=== PATIENT | male | born 1950 | race Caucasian/White ===

== ENCOUNTER 2016-10-04 10:04 | Inpatient (IN) | payer OTHER, MEDICARE ==
--- NOTE | 2016-10-04 11:37 | PDOC ---
History of Present Illness - General History Source: Patient Exam Limitations: No Limitations - History of Present Illness Initial Comments: CHIEF COMPLAINT: 65 y/o afebrile male with PMH enlarged prostate (multiple episodes of urinary retention), kidney stones c/o urinary retention and hematuria. HISTORY OF PRESENT ILLNESS: The patient states he is visiting from [place]. yesterday he started having some hematuria but was able to void. He has only been able to void in small dribbles this morning and states he has a lot of pressure in his bladder. He continues to have hematuria. He denies f/c, n/v/d , CP, SOB, back pain. He states this happens about 3 times per year where he has to come to the ER and get catheterized. He states they normally have to use a couvet catheter. Vital signs on arrival are notable for pulse of 50. REVIEW OF SYSTEMS: GENERAL/CONSTITUTIONAL: No fever/chills. No weakness. No weight change. HEAD, EYES, EARS, NOSE AND THROAT: No change in vision. No ear pain or discharge. No sore throat. CARDIOVASCULAR: No chest pain or shortness of breath. RESPIRATORY: No cough, wheezing, or hemoptysis. GASTROINTESTINAL: +lower abdominal pressure. No nausea, vomiting, diarrhea. GENITOURINARY: +hematuria and urinary retention. MUSCULOSKELETAL: No joint or muscle swelling or pain. No neck or back pain. SKIN: No rash or easy bruising. NEUROLOGIC: No headache, vertigo, loss of consciousness, or loss of sensation. PHYSICAL EXAM: GENERAL: The patient is awake, alert, and fully oriented, in moderate discomfort. HEAD: Normal with no signs of trauma. ENT: Pupils equal, round and reactive to light, extraocular movements intact, sclera anicteric, conjunctiva clear. Neck supple. LUNGS: Clear to auscultation bilaterally. Normal excursion. No respiratory distress or use of accessory muscles. CV: RRR, S1/S2, no MRG. Cap refill < 2 sec. ABDOMEN: Soft, non-distended, mild TTP of suprapubic region. No rebound, guarding or rigidity BACK: No CVA TTP b/l. EXTREMITIES: Normal range of motion, no edema. NEUROLOGICAL: Normal speech, normal gait. CN II-XII grossly intact. PSYCH: Normal mood, normal affect. SKIN: Warm, dry, normal turgor, no rashes or lesions noted. <Antonia Mike - Last Filed: 10/04/16 17:07> <Torsten Lopse - Last Filed: 10/07/16 08:11> - General Chief Complaint: Urinary Problem Stated Complaint: URINARY RETENTION/HEMATURIA Time Seen by Provider: 10/04/16 11:05 Past History - Psycho/Social/Smoking Cessation Hx Suicidal Ideation: No Smoking History: Former smoker Have you smoked in the past 12 months: No Information on smoking cessation initiated: No <Antonia Mike - Last Filed: 10/04/16 17:07> <Torsten Lopes - Last Filed: 10/07/16 08:11> - Past Medical History Allergies/Adverse Reactions: Allergies Allergy/AdvReac Type Severity Reaction Status Date / Time No Known Allergies Allergy Verified 10/04/16 10:17 Home Medications: Ambulatory Orders Omeprazole 40 mg PO DAILY 10/04/16 Tamsulosin HCl 0.4 mg PO DAILY 10/04/16 *Physical Exam - Vital Signs Last Vital Signs Temp Pulse Resp BP Pulse Ox 97.5 F L 50 L 19 165/81 98 10/04/16 10:17 10/04/16 10:17 10/04/16 10:17 10/04/16 10:17 10/04/16 10:17 <Antonia Mike - Last Filed: 10/04/16 17:07> - Vital Signs Last Vital Signs Temp Pulse Resp BP Pulse Ox 97.5 F L 43 L 18 138/43 98 10/07/16 06:00 10/07/16 06:00 10/07/16 06:00 10/07/16 06:00 10/06/16 22:00 <Torsten Lopes - Last Filed: 10/07/16 08:11> ED Treatment Course - LABORATORY CBC & Chemistry Diagram: 10/04/16 11:07 10/04/16 11:07 <Antonia Mike - Last Filed: 10/04/16 17:07> - LABORATORY CBC & Chemistry Diagram: 10/06/16 10:15 10/06/16 10:15 - ADDITIONAL ORDERS Additional order review: 10/04/16 11:07 Urine Culture - Final Urine - Urine - Catheterized NO GROWTH OBTAINED 10/04/16 11:07 RBC 5.38 MCV 88.8 MCHC 33.2 RDW 13.3 MPV 9.0 Neutrophils % 83.7 H Lymphocytes % 10.6 Monocytes % 5.0 Eosinophils % 0.4 Basophils % 0.3 - Medications Given in the ED: ED Medications Discontinued Medications Generic Name Dose Route Start Last Admin Trade Name Poncho PRN Reason Stop Dose Admin Sodium Chloride 1,000 mls @ 1,000 mls/hr 10/04/16 11:38 10/04/16 13:07 Normal Saline - IV 10/04/16 12:37 1,000 mls/hr ASDIR STA Administration Levofloxacin 100 mls @ 100 mls/hr 10/04/16 12:18 10/04/16 14:00 Levaquin 500 Mg Premixed Ivpb - IVPB 10/04/16 13:17 100 mls/hr ONCE ONE Administration <Torsten Lopes - Last Filed: 10/07/16 08:11> Medical Decision Making - Medical Decision Making A/P: 65 y/o afebrile male with urinary retention and hematuria. Plan is as follows: 1. UA/culture 2. Labs 3. IV fluids 4. Insert catheter 5. Bladder scan Bladder scan revealed 100cc residual. Vasquez continued to produce no urine output. RN performed beside irrigation and multiple large clots came out. Bedside ultrasound revealed large bladder clot (6cm x 4cm) and mild hydronephrosis on right side. Will send for Spiral CT Called Dr. Azevedo for consult Pt still refusing pain meds. Only very small amount of serous fluid output after the vasquez was inserted. Spoke with Dr. Sullivan of [facility], and he suggests admission for IV antibiotics and hourly bladder irrigation. Will admit to hospitalist as the patient is from [place], [place] and will consult with [facility]. <Antonia Mike - Last Filed: 10/04/16 17:07> - Medical Decision Making 10/07/16 08:11 The patient was seen and evaluated in conjunction with TRAM Mike under my direct supervision, ancillary studies were reviewed. I agree with the plan as outlined by [facility] . <Torsten Lopes - Last Filed: 10/07/16 08:11> *DC/Admit/Observation/Transfer - Discharge Dispostion Admit: Yes <Antonia Mike - Last Filed: 10/04/16 17:07> <Torsten Lopes - Last Filed: 10/07/16 08:11> Diagnosis at time of Disposition: Urinary retention, Hematuria UTI (urinary tract infection) Qualifiers: Urinary tract infection type: acute cystitis Hematuria presence: with hematuria Qualified Code(s): N30.01 - Acute cystitis with hematuria - Discharge Dispostion Condition at time of disposition: Stable - Patient Instructions
[2016-10-04] MEDS ORDERED: SODIUM CHLORIDE 1,000 ML IV STA (11:38)
[2016-10-04 12:11] LABS: BASOPHIL 0.3 % (0-2.0); EOSINOPHIL 0.4 % (0-4.5); MCH 29.5 pg (25.7-33.7); MCHC 33.2 g/dl (32.0-35.9); MEAN CELL VOLUME 88.8 fl (80-96); NEUTROPHILS 83.7 % (42.8-82.8); PLATELET COUNT 134 K/MM3 (134-434); RDW 13.3 % (11.9-15.9); URINE APPEARANCE CLEAR; URINE BILIRUBIN NEGATIVE (NEGATIVE); URINE COLOR DK. RED; URINE GLUCOSE (UA) NEGATIVE (NEGATIVE); URINE KETONE TRACE (NEGATIVE); URINE UROBILINOGEN 1.0 E.U/dl E.U./dl (0.2-1.0); WHITE BLOOD COUNT 6.8 K/mm3 (4.0-10.0)
[2016-10-04 12:15] LABS: URINE BLOOD 3+ (NEGATIVE); URINE LEUK ESTERASE TRACE (NEGATIVE); URINE NITRITE POSITIVE (NEGATIVE); URINE PROTEIN 2+ (NEGATIVE)
[2016-10-04 12:18] LABS: URINE RBC 7407 /hpf (0-3); URINE WBC 99 /hpf (3-5)
[2016-10-04 12:41] LABS: ANION GAP 8 (8-16); BILIRUBIN,TOTAL 0.9 mg/dL (0.2-1.0); CALCIUM 9.3 mg/dL (8.5-10.1); CO2 28 mmol/L (21-32); COCKROFT - GAULT 131.6; CREATININE 0.8 mg/dL (0.7-1.3); GLUCOSE,RANDOM 116 mg/dL (74-106); SGOT/AST 13 U/L (15-37); SGPT/ALT 23 U/L (12-78); TOT PROT 6.8 g/dl (6.4-8.2)
[2016-10-04 12:42] LABS: ALK PHOS 75 U/L (45-117)
[2016-10-04] MEDS: LEVOFLOXACIN 500 MG IVPB 100 ML IVPB ONE ×2 (13:50→14:00)
[2016-10-04] MEDS ORDERED: LEVOFLOXACIN 500 MG IVPB 100 ML IVPB ONE (13:59)
--- NOTE | 2016-10-04 18:29 | HP ---
CHIEF COMPLAINT: " Blood in urine" PCP: Dr. Arely christensen ([place]) Dr. Theodore Schaefer (Urologist in [place]) Dr. Elke Maharaj (GI in [place]) HISTORY OF PRESENT ILLNESS: Patient is a 65 year old male presented to the ED with the chief complaints of "blood in urine". As per the patient, he has a h/o painless hematuria on/off since 2 years, h/o kidney stones- invasive procedure done (name unknown) 3 months ago after which he stopped taking aspirin. But patient began taking aspirin 3 weeks ago, passed a large blood clot from the urine after 2 days and he then stopped taking aspirin. Since then he has noticed more of hematuria. Normally has nocturia 3-5times, urinary incontinence but denies hesitancy, urgency. This morning when he woke up to urinate, he noticed the flow of urine was decreased and passed only blood with minimal urine. He called his urologist in [place] at 6am in the morning who suggested him to go to the ED, hence he came here. Has a h/o BPH, underwent cystoscopy and TURP 3 months back. Patient also reports of having abdominal discomfort since 6 years with decreased appetite associated with nausea but no vomiting. He also lost around 25 pounds in the last 2 months. Endoscopy was done about 2 weeks ago which was benign. Complaints of chills but no fever, sweating, flank pain, chest pain, sob, cough , palpitations, headache, tingling or numbness. Sleep normal. ER course was notable for: (1) Afebrile, hemodynamically stable, No leukocytosis, UA: 2+ ptn; 3 + blood; Trace leukocyte esterase, urinary nitrate Positive. (2) CT abdomen/pelvis: Nephrolithiasis (3) IV Fluids, IV levofloxacin 500mg. Recent Travel: Lives in [place], came to [place] last week. PAST MEDICAL HISTORY: BPH (multiple episodes of urinary retention); Kidney stones (3 times: 2 lithotripsy's done with 1 invasive procedure (name unknown), gall stone pancreatitis for which he was hospitalized from [id number] and had whipples surgery as per patient in 2006 ?? pancreatic cancer, TURP done 3 months ago PAST SURGICAL HISTORY: As mentioned above Social History: Smoking: Former smoker, stopped 40 years ago Alcohol: Occasional Drugs: Denies Family History: Unknown Allergies No Known Allergies Allergy (Verified 10/04/16 10:17) HOME MEDICATIONS: Home Medications Medication Instructions Recorded Omeprazole 40 mg PO DAILY 10/04/16 Tamsulosin HCl 0.4 mg PO DAILY 10/04/16 REVIEW OF SYSTEMS CONSTITUTIONAL: Present: chills,generalized weakness Absent: fever, diaphoresis, malaise, loss of appetite, weight change HEENT: Absent: rhinorrhea, nasal congestion, throat pain, throat swelling, difficulty swallowing, mouth swelling, ear pain, eye pain, visual changes CARDIOVASCULAR: Absent: chest pain, syncope, palpitations, irregular heart rate, lightheadedness , peripheral edema RESPIRATORY: Absent: cough, shortness of breath, dyspnea with exertion, orthopnea, wheezing, stridor, hemoptysis GASTROINTESTINAL: Present: abdominal discomfort, nausea Absent: abdominal pain, abdominal distension, vomiting, diarrhea, constipation, melena, hematochezia GENITOURINARY: Present: hematuria Absent: dysuria, frequency, urgency, hesitancy, flank pain, genital pain MUSCULOSKELETAL: Absent: myalgia, arthralgia, joint swelling, back pain, neck pain SKIN: Absent: rash, itching, pallor HEMATOLOGIC/IMMUNOLOGIC: Absent: easy bleeding, easy bruising, lymphadenopathy, frequent infections ENDOCRINE: Absent: unexplained weight gain, unexplained weight loss, heat intolerance, cold intolerance NEUROLOGIC: Absent: headache, focal weakness or paresthesias, dizziness, unsteady gait, seizure, mental status changes, bladder or bowel incontinence PSYCHIATRIC: Absent: anxiety, depression, suicidal or homicidal ideation, hallucinations. PHYSICAL EXAMINATION Vital Signs - 24 hr 10/04/16 17:13 Temperature 98.3 F Pulse Rate [ 50 L Left Radial] Respiratory 16 Rate Blood Pressure 143/69 [Right Arm] O2 Sat by Pulse 100 Oximetry (%) GENERAL: Healthy looking male, lying comfortably in bed, Awake, alert, and fully oriented, in no acute distress. HEAD: Normal with no signs of trauma. EYES: EOM intact, no pallor or icterus. EARS, NOSE, THROAT: Ears normal. Moist mucous membranes. NECK: Supple. LUNGS: Breath sounds equal, clear to auscultation bilaterally. No wheezes, and no crackles. No accessory muscle use. HEART: Regular rate and rhythm, normal S1 and S2 without murmur. ABDOMEN: Multiple surgical scar sanders, Soft, slightly tender to palpation around umbilical area, not distended, normoactive bowel sounds, no guarding, no rebound, no masses. No hepatomegaly or splenomegaly. MUSCULOSKELETAL: Normal range of motion at all joints. No bony deformities or tenderness. No CVA tenderness. UPPER EXTREMITIES: 2+ pulses, warm, well-perfused. No cyanosis. No clubbing. No peripheral edema. LOWER EXTREMITIES: 2+ pulses, warm, well-perfused. No calf tenderness. No peripheral edema. NEUROLOGICAL: Cranial nerves II-XII intact. Normal speech. Gait not observed. PSYCHIATRIC: Cooperative. Good eye contact. Appropriate mood and affect. SKIN: Warm, dry, normal turgor, no rashes or lesions noted, normal capillary refill. 10/04/2016 CT abdomen: Postcholecystectomy surgical metallic clips are present. The stomach is only partially distended limiting evaluation of its wall. Both adrenal glands appear unremarkable. Left kidney is within normal limits in size with a few small nonobstructing lower pole stones measuring up to 6 mm. Impression: Status post cholecystectomy. Small nonobstructing left renal stones. 1.5 right renal pelvis stone with mild right renal hydronephrosis and right hydroureter and without evidence of a ureteral stone. Large mass like density within the urinary bladder measuring 6 cm displacing the Conway catheter tube and balloon towards the left. Iatrogenic intraluminal air is present. Further evaluation of the urinary bladder with cystoscopy is recommended. Multilevel degenerative disc disease in the lumbar spine mainly at L1-L2 level ASSESSMENT/PLAN: Patient is a 65 year old male with significant past medical history BPH ( multiple episodes of urinary retention); Kidney stones (3 times: 2 lithotripsy' s done with 1 invasive procedure (name unknown), gall stone pancreatitis for which he was hospitalized from [id number] and had whipples surgery in 2006 likely had pancreatic cancer, TURP done 3 months ago presented to the ED with the chief complaints of "blood in urine". # Recurrent hematuria likely due to UTI with Nephrolithiasis with mild right renal hydronephrosis and right hydroureter. H/o recurrent hematuria since 2 years, with kidney stones (3 times) in the past, came in with hematuria On arrival, he was Afebrile, hemodynamically stable, No leukocytosis, UA: 2+ ptn; 3 + blood; Trace leukocyte esterase, positive nitrates. CT abdomen/pelvis shows Nephrolithiasis with hydroureter, reported as above In the ED, patient received IV Fluids, IV levofloxacin 500mg. Admitted in Med-Surg Patient tolerating oral diet, hence no IV fluids are given at this time IV Ceftriaxone 1gm Daily Tamsulosin 0.4 mg PO Daily Urology consult appreciated Likely needs an invasive procedure, hence kept NPO from midnight and should start IV fluids after midnight. Conway catheter in place Bladder irrigation hourly ( as per urologist per ED documentation) and urology follow up tomorrow. I's and O's. # Painless hematuria likely due to ?? Bladder mass H/o weight loss, former smoker, hematuria CT abdomen showed Large mass like density within the urinary bladder measuring 6 cm displacing the Conway catheter tube and balloon towards the left. R/O Bladder cancer Needs biopsy # BPH Likely cause of urinary retention and UTI Enlarged Prostate size 5.6x5.3cm Flomax 0.4 mg continued # Abdominal discomfort likely because of urinary retention # Asymptomatic Bradycardia As per patient, he always remains in 50's but has never been worked up for bradycardia. TSH, would consider, cardiology evaluation # FEN Not on IV fluids Electrolytes WNL # Prophylaxis For DVT: Has hematuria so placed in SCD's. For GI: Not indicated # Code Status: Full Code # Dispo: Admitted in med-surg. Duration of stay unknown. Illness, Investigation and plan of care explained to the patient. He verbalized understanding. Case discussed with Dr. Abreu. Visit type - Emergency Visit Emergency Visit: Yes ED Registration Date: 10/04/16 Care time: The patient presented to the Emergency Department on the above date and was hospitalized for further evaluation of their emergent condition. - New Patient This patient is new to me today: Yes Date on this admission: 10/04/16 - Critical Care Critical Care patient: No
[2016-10-04] MEDS ORDERED: TAMSULOSIN HCL 0.4 MG CAP.ER.24H (FP) ONE (19:59)
--- NOTE | 2016-10-04 19:59 | PN ---
Teaching Attending Note Name of Resident: Donna Mondragon ATTENDING PHYSICIAN STATEMENT I saw and evaluated the patient. I reviewed the resident's note and discussed the case with the resident. I agree with the resident's findings and plan as documented. SUBJECTIVE: Patient is having gross hematuria s/p vasquez catheter with hourly irrigation. OBJECTIVE: Vital Signs Temperature 97.7 F 10/04/16 19:34 Pulse Rate 82 10/04/16 19:34 Respiratory Rate 17 10/04/16 19:34 Blood Pressure 146/85 10/04/16 19:34 O2 Sat by Pulse Oximetry (%) 96 10/04/16 19:34 CBCD WBC 6.8 K/mm3 (4.0-10.0) 10/04/16 11:07 RBC 5.38 M/mm3 (4.00-5.60) 10/04/16 11:07 Hgb 15.8 GM/dL (11.7-16.9) 10/04/16 11:07 Hct 47.7 % (35.4-49) 10/04/16 11:07 MCV 88.8 fl (80-96) 10/04/16 11:07 MCHC 33.2 g/dl (32.0-35.9) 10/04/16 11:07 RDW 13.3 % (11.9-15.9) 10/04/16 11:07 Plt Count 134 K/MM3 (134-434) 10/04/16 11:07 MPV 9.0 fl (7.5-11.1) 10/04/16 11:07 CMP Sodium 143 mmol/L (136-145) 10/04/16 11:07 Potassium 4.0 mmol/L (3.5-5.1) 10/04/16 11:07 Chloride 107 mmol/L (98-107) 10/04/16 11:07 Carbon Dioxide 28 mmol/L (21-32) 10/04/16 11:07 Anion Gap 8 (8-16) 10/04/16 11:07 BUN 23 mg/dL (7-18) H 10/04/16 11:07 Creatinine 0.8 mg/dL (0.7-1.3) 10/04/16 11:07 Creat Clearance w eGFR > 60 (>60) 10/04/16 11:07 Random Glucose 116 mg/dL (74-106) H 10/04/16 11:07 Calcium 9.3 mg/dL (8.5-10.1) 10/04/16 11:07 Total Bilirubin 0.9 mg/dL (0.2-1.0) 10/04/16 11:07 AST 13 U/L (15-37) L 10/04/16 11:07 ALT 23 U/L (12-78) 10/04/16 11:07 Alkaline Phosphatase 75 U/L (45-117) 10/04/16 11:07 Total Protein 6.8 g/dl (6.4-8.2) 10/04/16 11:07 Albumin 4.0 g/dl (3.4-5.0) 10/04/16 11:07 Current Medications Generic Name Dose Route Start Last Admin Trade Name Poncho PRN Reason Stop Dose Admin Ceftriaxone Sodium 1 gm 10/05/16 10:00 Rocephin 1gm Ivpb (Pre-Docked) IVPB DAILY [facility] Tamsulosin HCl 0.4 mg 10/04/16 19:45 Flomax - PO DAILY [facility] Home Medications Medication Instructions Recorded Omeprazole 40 mg PO DAILY 10/04/16 Tamsulosin HCl 0.4 mg PO DAILY 10/04/16 Urine Test Results Urine Color Dk. red 10/04/16 11:07 Urine Appearance Clear 10/04/16 11:07 Urine pH 7.0 (5.0-8.0) 10/04/16 11:07 Ur Specific [place] 1.020 (1.005-1.025) 10/04/16 11:07 Urine Protein 2+ (NEGATIVE) H 10/04/16 11:07 Urine Glucose (UA) Negative (NEGATIVE) 10/04/16 11:07 Urine Ketones Trace (NEGATIVE) H 10/04/16 11:07 Urine Blood 3+ (NEGATIVE) H 10/04/16 11:07 Urine Nitrite Positive (NEGATIVE) 10/04/16 11:07 Urine Bilirubin Negative (NEGATIVE) 10/04/16 11:07 Ur Leukocyte Esterase Trace (NEGATIVE) H 10/04/16 11:07 Urine RBC 7407 /hpf (0-3) 10/04/16 11:07 Urine WBC 99 /hpf (3-5) 10/04/16 11:07 Rule out stone. Bladder hematoma CT scan of the abdomen pelvis without oral and intravenous contrast Coronal and sagittal reformatted images were obtained No prior is available for comparison The visualized lung base appears unremarkable and the heart is within normal limits in size. Evaluation of the liver, spleen and pancreas appear unremarkable. Postcholecystectomy surgical metallic clips are present. The stomach is only partially distended limiting evaluation of its wall. Both adrenal glands appear unremarkable. Left kidney is within normal limits in size with a few small nonobstructing lower pole stones measuring up to 6 mm. Right kidney is within normal limits in size with a 1.5 cm stone in the renal pelvis there is also mild right hydroureter without gross evidence of a ureteral stone. Urinary bladder is partially distended with a Vasquez catheter identified. The Vasquez catheter tube and balloon are displaced towards the left with an intraluminal masslike density measuring approximately 6 cm. Intraluminal air is present. The prostate gland is enlarged measuring 5.6 x 5.3 cm. There is no evidence of small bowel obstruction or enlarged retroperitoneal lymph nodes. 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 Normal stool burden in the colon with possible few diverticula identified and without wall thickening. There is mild dextroscoliosis of the upper lumbar spine with multilevel degenerative disc disease at small prominent at L1-L2 level. Mild osteoarthritic changes in both hip joints appear intact. Impression: Status post cholecystectomy. Small nonobstructing left renal stones. 1.5 right renal pelvis stone with mild right renal hydronephrosis and right hydroureter and without evidence of a ureteral stone. Large masslike density within the urinary bladder measuring 6 cm displacing the Vasquez catheter tube and balloon towards the left. Iatrogenic intraluminal air is present. Further evaluation of the urinary bladder with cystoscopy is recommended. Multilevel degenerative disc disease in the lumbar spine mainly at L1-L2 level Reported By: Jake Garcia MD 10/04/16 [id number] ASSESSMENT AND PLAN: 65 yo male w 2 days gross hematuria now improving with hx of Hematureia in the past 3 months ago where they stopped Aspirin , but patient since was doing well without any Hematuria decided to re-start the aspirin and started to have hematuria recurrence # Acute Hematuria with clots with Hx of BPH consulted 's grp on irrigation every 2 hrs. Continue Flomax # Acute UTI on IV Rocephin # Acute nephrolithiais size of 1.5cm in the renal pelvis with mild hydroureter # Enlarged Prostate size 5.6x5.3cm on flomax continue # Calcified Atheromatous plaques in the abdominal aorta Patient was told not to use any Aspririn since having hematuria and was told by his PMD not to use aspriin and his urologist as per patient.
[2016-10-04] MEDS: TAMSULOSIN HCL 0.4 MG CAP.ER.24H (FP) PO SCH (20:00)
[2016-10-04 23:18] VITALS: BMI 26.5
[2016-10-05] MEDS: TAMSULOSIN HCL 0.4 MG CAP.ER.24H (FP) PO SCH (09:53)
[2016-10-05] MEDS: cefTRIAXone 1 GM/50 ML BAG (PRE-DOCKED) IVPB SCH (09:53)
[2016-10-05] MEDS ORDERED: CEFTRIAXONE 1 GM in DEXTROSE 5%-WATER - 50 ML IVPB SCH (10:00)
--- NOTE | 2016-10-05 13:05 | CON.GU ---
Consult Consult Specialty:: Urology Reason for Consultation:: Gross Hematuria. Renal calculi - History Source History Provided By: Patient, Medical Record - Alcohol/Substance Use Hx Alcohol Use: No - Smoking History Smoking history: Former smoker Have you smoked in the past 12 months: No Home Medications - Allergies Allergies/Adverse Reactions: Allergies Allergy/AdvReac Type Severity Reaction Status Date / Time No Known Allergies Allergy Verified 10/04/16 10:17 - Home Medications Home Medications: Ambulatory Orders Omeprazole 40 mg PO DAILY 10/04/16 Tamsulosin HCl 0.4 mg PO DAILY 10/04/16 Physical Exam- Vital Signs: Vital Signs Temperature 97.5 F L 10/05/16 10:10 Pulse Rate 42 L 10/05/16 10:10 Respiratory Rate 18 10/05/16 10:10 Blood Pressure 125/55 10/05/16 10:10 O2 Sat by Pulse Oximetry (%) 99 10/04/16 22:32 Imaging - Results Cat Scan: Report Reviewed Problem List - Problems (1) Hematuria Assessment/Plan: 65 yo male w 2 days gross hematuria now improving. Pt found to have UTI currently tx w levaquin Catheter in place clearing CT w right renal calculi and mildly dilated ureter Bladder mass 6 cm possibly clott vs mass will require elective cystoscopy as opd Will discuss management plan for renal calculi once infection and blood clears Code(s): R31.9 - HEMATURIA, UNSPECIFIED
--- NOTE | 2016-10-05 17:14 | PN ---
Physical Exam: SUBJECTIVE: Patient seen and examined Continues to have hematuria, more dark urine now on and off. OBJECTIVE: Vital Signs Temperature 98.4 F 10/05/16 14:36 Pulse Rate 43 L 10/05/16 14:36 Respiratory Rate 20 10/05/16 14:36 Blood Pressure 129/62 10/05/16 14:36 O2 Sat by Pulse Oximetry (%) 94 L 10/05/16 09:00 GENERAL: The patient is awake, alert, and fully oriented, in no acute distress. HEAD: Normal with no signs of trauma. EYES: PERRL, extraocular movements intact, sclera anicteric, conjunctiva clear. No ptosis. ENT: Ears normal, nares patent, oropharynx clear without exudates, moist mucous membranes. NECK: Trachea midline, full range of motion, supple. LUNGS: Breath sounds equal, clear to auscultation bilaterally, no wheezes, no crackles, no accessory muscle use. HEART: Bradycardic ,regular rhythm, S1, S2 without murmur, rub or gallop. ABDOMEN: Soft, nontender, nondistended, normoactive bowel sounds, no guarding, no rebound, no hepatosplenomegaly, no masses. EXTREMITIES: 2+ pulses, warm, well-perfused, no edema. NEUROLOGICAL: Cranial nerves II through XII grossly intact. Normal speech, gait not observed. PSYCH: Normal mood, normal affect. SKIN: Warm, dry, normal turgor, no rashes or lesions noted Active Medications Generic Name Dose Route Start Last Admin Trade Name Freq PRN Reason Stop Dose Admin Ceftriaxone Sodium 1 gm 10/05/16 10:00 10/05/16 09:53 Rocephin 1gm Ivpb (Pre-Docked) IVPB 1 gm DAILY ANNE Administration Tamsulosin HCl 0.4 mg 10/04/16 19:45 10/05/16 09:53 Flomax - PO 0.4 mg DAILY ANNE Administration Home Medications Medication Instructions Recorded Omeprazole 40 mg PO DAILY 10/04/16 Tamsulosin HCl 0.4 mg PO DAILY 10/04/[address] scan of the abdomen pelvis without oral and intravenous contrast Coronal and sagittal reformatted images were obtained No prior is available for comparison The visualized lung base appears unremarkable and the heart is within normal limits in size. Evaluation of the liver, spleen and pancreas appear unremarkable. Postcholecystectomy surgical metallic clips are present. The stomach is only partially distended limiting evaluation of its wall. Both adrenal glands appear unremarkable. Left kidney is within normal limits in size with a few small nonobstructing lower pole stones measuring up to 6 mm. Right kidney is within normal limits in size with a 1.5 cm stone in the renal pelvis there is also mild right hydroureter without gross evidence of a ureteral stone. Urinary bladder is partially distended with a Conway catheter identified. The Conway catheter tube and balloon are displaced towards the left with an intraluminal masslike density measuring approximately 6 cm. Intraluminal air is present. The prostate gland is enlarged measuring 5.6 x 5.3 cm. There is no evidence of small bowel obstruction or enlarged retroperitoneal lymph nodes. 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 Normal stool burden in the colon with possible few diverticula identified and without wall thickening. There is mild dextroscoliosis of the upper lumbar spine with multilevel degenerative disc disease at small prominent at L1-L2 level. Mild osteoarthritic changes in both hip joints appear intact. Impression: Status post cholecystectomy. Small nonobstructing left renal stones. 1.5 right renal pelvis stone with mild right renal hydronephrosis and right hydroureter and without evidence of a ureteral stone. Large masslike density within the urinary bladder measuring 6 cm displacing the Conway catheter tube and balloon towards the left. Iatrogenic intraluminal air is present. Further evaluation of the urinary bladder with cystoscopy is recommended. Multilevel degenerative disc disease in the lumbar spine mainly at L1-L2 level Reported By: Jake Garcia MD 10/04/16 2445 ASSESSMENT AND PLAN: 65 yo male w 2 days gross hematuria now improving with hx of Hematureia in the past 3 months ago where they stopped Aspirin , but patient since was doing well without any Hematuria decided to re-start the aspirin and started to have hematuria recurrence # Acute Hematuria with clots catheter in place clearing. On irrigation every 2 hrs. Urology is on the case. # Acute UTI on IV Rocephin day #2 # Acute right nephrolithiais size of 1.5cm in the renal pelvis with mild hydroureter patient will follow with his urologist # Enlarged Prostate size 5.6x5.3cm on flomax continue will follow with his Urologist # Calcified Atheromatous plaques in the abdominal aorta # Bladder mass 6 cm questional clot vs mass will require elective cystoscopy as on outpatient. DVT Px: Can't be anticoagulated since having Hematuria Visit type - Emergency Visit Emergency Visit: Yes ED Registration Date: 10/04/16 Care time: The patient presented to the Emergency Department on the above date and was hospitalized for further evaluation of their emergent condition. - New Patient This patient is new to me today: No - Critical Care Critical Care patient: No
[2016-10-06] MEDS: TAMSULOSIN HCL 0.4 MG CAP.ER.24H (FP) PO SCH (10:18)
[2016-10-06] MEDS: cefTRIAXone 1 GM/50 ML BAG (PRE-DOCKED) IVPB SCH (10:18)
[2016-10-06 11:13] LABS: BASOPHIL 0.5 % (0-2.0); EOSINOPHIL 3.6 % (0-4.5); MCH 29.8 pg (25.7-33.7); MCHC 33.3 g/dl (32.0-35.9); MEAN CELL VOLUME 89.5 fl (80-96); MEAN PLT VOLUME 9.4 fl (7.5-11.1); NEUTROPHILS 68.5 % (42.8-82.8); PLATELET COUNT 133 K/MM3 (134-434); RDW 13.2 % (11.9-15.9); WHITE BLOOD COUNT 4.4 K/mm3 (4.0-10.0)
[2016-10-06 11:39] LABS: ALBUMIN 3.5 g/dl (3.4-5.0); ALK PHOS 59 U/L (45-117); ANION GAP 10 (8-16); BILIRUBIN,TOTAL 0.8 mg/dL (0.2-1.0); CALCIUM 9.1 mg/dL (8.5-10.1); CO2 30 mmol/L (21-32); COCKROFT - GAULT 115.97; CREATININE 0.9 mg/dL (0.7-1.3); GLUCOSE,RANDOM 99 mg/dL (74-106); SGOT/AST 8 U/L (15-37); SGPT/ALT 20 U/L (12-78); TOT PROT 6.1 g/dl (6.4-8.2)
--- NOTE | 2016-10-06 11:58 | PN ---
Progress Note (short form) - Note Progress Note: Patient continues to have more clots today , continue irrigation for now. Temperature 97 F L 10/06/16 10:03 Pulse Rate 40 L 10/06/16 10:30 Respiratory Rate 16 10/06/16 10:30 Blood Pressure 132/70 10/06/16 10:30 O2 Sat by Pulse Oximetry (%) 96 10/05/16 22:00 GENERAL: The patient is awake, alert, and fully oriented, in no acute distress. HEAD: Normal with no signs of trauma. EYES: PERRL, extraocular movements intact, sclera anicteric, conjunctiva clear. No ptosis. ENT: Ears normal, nares patent, oropharynx clear without exudates, moist mucous membranes. NECK: Trachea midline, full range of motion, supple. LUNGS: Breath sounds equal, clear to auscultation bilaterally, no wheezes, no crackles, no accessory muscle use. HEART: Bradycardic ,regular rhythm, S1, S2 without murmur, rub or gallop. ABDOMEN: Soft, nontender, nondistended, normoactive bowel sounds, no guarding, no rebound, no hepatosplenomegaly, no masses. EXTREMITIES: 2+ pulses, warm, well-perfused, no edema. NEUROLOGICAL: Cranial nerves II through XII grossly intact. Normal speech, gait not observed. PSYCH: Normal mood, normal affect. SKIN: Warm, dry, normal turgor, no rashes or lesions noted : positive for vasquze with clots CBCD WBC 4.4 K/mm3 (4.0-10.0) D 10/06/16 10:15 RBC 4.83 M/mm3 (4.00-5.60) 10/06/16 10:15 Hgb 14.4 GM/dL (11.7-16.9) 10/06/16 10:15 Hct 43.2 % (35.4-49) 10/06/16 10:15 MCV 89.5 fl (80-96) 10/06/16 10:15 MCHC 33.3 g/dl (32.0-35.9) 10/06/16 10:15 RDW 13.2 % (11.9-15.9) 10/06/16 10:15 Plt Count 133 K/MM3 (134-434) L 10/06/16 10:15 MPV 9.4 fl (7.5-11.1) 10/06/16 10:15 CMP Sodium 143 mmol/L (136-145) 10/06/16 10:15 Potassium 3.7 mmol/L (3.5-5.1) 10/06/16 10:15 Chloride 103 mmol/L (98-107) 10/06/16 10:15 Carbon Dioxide 30 mmol/L (21-32) 10/06/16 10:15 Anion Gap 10 (8-16) 10/06/16 10:15 BUN 12 mg/dL (7-18) D 10/06/16 10:15 Creatinine 0.9 mg/dL (0.7-1.3) 10/06/16 10:15 Creat Clearance w eGFR > 60 (>60) 10/06/16 10:15 Random Glucose 99 mg/dL (74-106) 10/06/16 10:15 Calcium 9.1 mg/dL (8.5-10.1) 10/06/16 10:15 Total Bilirubin 0.8 mg/dL (0.2-1.0) 10/06/16 10:15 AST 8 U/L (15-37) L D 10/06/16 10:15 ALT 20 U/L (12-78) 10/06/16 10:15 Alkaline Phosphatase 59 U/L (45-117) D 10/06/16 10:15 Total Protein 6.1 g/dl (6.4-8.2) L 10/06/16 10:15 Albumin 3.5 g/dl (3.4-5.0) 10/06/16 10:15 Current Medications Generic Name Dose Route Start Last Admin Trade Name Freq PRN Reason Stop Dose Admin Ceftriaxone Sodium 1 gm 10/05/16 10:00 10/06/16 10:18 Rocephin 1gm Ivpb (Pre-Docked) IVPB 1 gm DAILY ANNE Administration Tamsulosin HCl 0.4 mg 10/04/16 19:45 10/06/16 10:18 Flomax - PO 0.4 mg DAILY ANNE Administration Home Medications Medication Instructions Recorded Omeprazole 40 mg PO DAILY 10/04/16 Tamsulosin HCl 0.4 mg PO DAILY 10/04/[address] scan of the abdomen pelvis without oral and intravenous contrast Coronal and sagittal reformatted images were obtained No prior is available for comparison The visualized lung base appears unremarkable and the heart is within normal limits in size. Evaluation of the liver, spleen and pancreas appear unremarkable. Postcholecystectomy surgical metallic clips are present. The stomach is only partially distended limiting evaluation of its wall. Both adrenal glands appear unremarkable. Left kidney is within normal limits in size with a few small nonobstructing lower pole stones measuring up to 6 mm. Right kidney is within normal limits in size with a 1.5 cm stone in the renal pelvis there is also mild right hydroureter without gross evidence of a ureteral stone. Urinary bladder is partially distended with a Vasquez catheter identified. The Vasquez catheter tube and balloon are displaced towards the left with an intraluminal masslike density measuring approximately 6 cm. Intraluminal air is present. The prostate gland is enlarged measuring 5.6 x 5.3 cm. There is no evidence of small bowel obstruction or enlarged retroperitoneal lymph nodes. 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 Normal stool burden in the colon with possible few diverticula identified and without wall thickening. There is mild dextroscoliosis of the upper lumbar spine with multilevel degenerative disc disease at small prominent at L1-L2 level. Mild osteoarthritic changes in both hip joints appear intact. Impression: Status post cholecystectomy. Small nonobstructing left renal stones. 1.5 right renal pelvis stone with mild right renal hydronephrosis and right hydroureter and without evidence of a ureteral stone. Large masslike density within the urinary bladder measuring 6 cm displacing the Vasquez catheter tube and balloon towards the left. Iatrogenic intraluminal air is present. Further evaluation of the urinary bladder with cystoscopy is recommended. Multilevel degenerative disc disease in the lumbar spine mainly at L1-L2 level Reported By: Jake Garcia MD 10/04/16 1255 ASSESSMENT AND PLAN: 65 yo male w 2 days gross hematuria now improving with hx of Hematureia in the past 3 months ago where they stopped Aspirin , but patient since was doing well without any Hematuria decided to re-start the aspirin and started to have hematuria recurrence # Acute Hematuria with clots, continue catheter irrigation for now, since continues to have clots .continue irrigation every 2 hrs. Urology is on the case. # Acute UTI on IV Rocephin contineu day #3 # Acute right nephrolithiais size of 1.5cm in the renal pelvis with mild hydroureter # Enlarged Prostate size 5.6x5.3cm on flomax continue # Calcified Atheromatous plaques in the abdominal aorta # Bladder mass 6 cm questional clot vs mass will require elective cystoscopy as on outpatient. DVT Px: Can't be anticoagulated since having Hematuria Patient will follow with his urologist in [facility] Visit type - Emergency Visit Emergency Visit: Yes ED Registration Date: 10/04/16 Care time: The patient presented to the Emergency Department on the above date and was hospitalized for further evaluation of their emergent condition. - New Patient This patient is new to me today: No - Critical Care Critical Care patient: No
[2016-10-07 09:13] VITALS: BP 129/50; PULSE 48; TEMP 97.6
[2016-10-07] MEDS: cefTRIAXone 1 GM/50 ML BAG (PRE-DOCKED) IVPB SCH (09:13)
[2016-10-07] MEDS: TAMSULOSIN HCL 0.4 MG CAP.ER.24H (FP) PO SCH (09:13)
--- NOTE | 2016-10-07 11:18 | PN ---
Teaching Attending Note Name of Resident: Donna Mondragon ATTENDING PHYSICIAN STATEMENT I saw and evaluated the patient. I reviewed the resident's note and discussed the case with the resident. I agree with the resident's findings and plan as documented. SUBJECTIVE: Patient is comfortable, no further hematuria x 24 hr. OBJECTIVE: Vital Signs Temperature 97.6 F 10/07/16 09:09 Pulse Rate 48 L 10/07/16 09:09 Respiratory Rate 20 10/07/16 09:09 Blood Pressure 129/50 10/07/16 09:09 O2 Sat by Pulse Oximetry (%) 99 10/07/16 09:00 CBCD WBC 4.4 K/mm3 (4.0-10.0) D 10/06/16 10:15 RBC 4.83 M/mm3 (4.00-5.60) 10/06/16 10:15 Hgb 14.4 GM/dL (11.7-16.9) 10/06/16 10:15 Hct 43.2 % (35.4-49) 10/06/16 10:15 MCV 89.5 fl (80-96) 10/06/16 10:15 MCHC 33.3 g/dl (32.0-35.9) 10/06/16 10:15 RDW 13.2 % (11.9-15.9) 10/06/16 10:15 Plt Count 133 K/MM3 (134-434) L 10/06/16 10:15 MPV 9.4 fl (7.5-11.1) 10/06/16 10:15 CMP Sodium 143 mmol/L (136-145) 10/06/16 10:15 Potassium 3.7 mmol/L (3.5-5.1) 10/06/16 10:15 Chloride 103 mmol/L (98-107) 10/06/16 10:15 Carbon Dioxide 30 mmol/L (21-32) 10/06/16 10:15 Anion Gap 10 (8-16) 10/06/16 10:15 BUN 12 mg/dL (7-18) D 10/06/16 10:15 Creatinine 0.9 mg/dL (0.7-1.3) 10/06/16 10:15 Creat Clearance w eGFR > 60 (>60) 10/06/16 10:15 Random Glucose 99 mg/dL (74-106) 10/06/16 10:15 Calcium 9.1 mg/dL (8.5-10.1) 10/06/16 10:15 Total Bilirubin 0.8 mg/dL (0.2-1.0) 10/06/16 10:15 AST 8 U/L (15-37) L D 10/06/16 10:15 ALT 20 U/L (12-78) 10/06/16 10:15 Alkaline Phosphatase 59 U/L (45-117) D 10/06/16 10:15 Total Protein 6.1 g/dl (6.4-8.2) L 10/06/16 10:15 Albumin 3.5 g/dl (3.4-5.0) 10/06/16 10:15 Current Medications Generic Name Dose Route Start Last Admin Trade Name Poncho PRN Reason Stop Dose Admin Ceftriaxone Sodium 1 gm 10/05/16 10:00 10/07/16 09:13 Rocephin 1gm Ivpb (Pre-Docked) IVPB 1 gm DAILY ANNE Administration Tamsulosin HCl 0.4 mg 10/04/16 19:45 10/07/16 09:13 Flomax - PO 0.4 mg DAILY ANNE Administration Urine Test Results Urine Color Dk. red 10/04/16 11:07 Urine Appearance Clear 10/04/16 11:07 Urine pH 7.0 (5.0-8.0) 10/04/16 11:07 Ur Specific [place] 1.020 (1.005-1.025) 10/04/16 11:07 Urine Protein 2+ (NEGATIVE) H 10/04/16 11:07 Urine Glucose (UA) Negative (NEGATIVE) 10/04/16 11:07 Urine Ketones Trace (NEGATIVE) H 10/04/16 11:07 Urine Blood 3+ (NEGATIVE) H 10/04/16 11:07 Urine Nitrite Positive (NEGATIVE) 10/04/16 11:07 Urine Bilirubin Negative (NEGATIVE) 10/04/16 11:07 Ur Leukocyte Esterase Trace (NEGATIVE) H 10/04/16 11:07 Urine RBC 7407 /hpf (0-3) 10/04/16 11:07 Urine WBC 99 /hpf (3-5) 10/04/16 11:07 ASSESSMENT AND PLAN: 65 yo male w 2 days gross hematuria now improving with hx of Hematureia in the past 3 months ago where they stopped Aspirin , but patient since was doing well without any Hematuria decided to re-start the aspirin and started to have hematuria recurrence #s/p Acute Hematuria with clots cleared will discontinue the catheter. Void prior to discharge , patient voided x 3-clear urine # Acute UTI completeed IV Rocephin # Acute right nephrolithiais size of 1.5cm in the renal pelvis with mild hydroureter # Enlarged Prostate size 5.6x5.3cm on flomax continue # Calcified Atheromatous plaques in the abdominal aorta # Bladder mass 6 cm questional clot vs mass will require elective cystoscopy as on outpatient. DVT Px: Can't be anticoagulated since having Hematuria will f/u w urologist in [place] re Kidney stone and BPH
--- NOTE | 2016-10-07 17:12 | PN ---
Progress Note (short form) - Note Progress Note: seen earlier today voided x 3-clear urine abd soft will f/u w urologist in [place] re Kidney stone and BPH
--- NOTE | 2016-10-07 17:42 | DS ---
Physical Exam: SUBJECTIVE: Patient seen and examined at bed side. No complaints. Has been voiding from vasquez catheter, since yesterday, urine has been clearer. Denies chest pain, sob, cough, palpitation, abdominal pain, nausea or vomiting. Sleep/Appetite normal. OBJECTIVE: Vital Signs Period Temp Pulse Resp BP Sys/Warren Pulse Ox Last 24 Hr 97.5 F-97.9 F 43-48 16-20 127-139/43-64 98-99 PHYSICAL EXAM GENERAL: Healthy looking male, lying comfortably in bed, Awake, alert, and fully oriented, in no acute distress, Vasquez catheter removed. HEAD: Normal with no signs of trauma. EYES: EOM intact, no pallor or icterus. EARS, NOSE, THROAT: Ears normal. Moist mucous membranes. NECK: Supple. LUNGS: Breath sounds equal, clear to auscultation bilaterally. No wheezes, and no crackles. No accessory muscle use. HEART: Regular rate and rhythm, normal S1 and S2 without murmur. ABDOMEN: Multiple surgical scar sanders, Soft, slightly tender to palpation around umbilical area, not distended, normoactive bowel sounds, no guarding, no rebound, no masses. No hepatomegaly or splenomegaly. MUSCULOSKELETAL: Normal range of motion at all joints. No bony deformities or tenderness. No CVA tenderness. UPPER EXTREMITIES: 2+ pulses, warm, well-perfused. No cyanosis. No clubbing. No peripheral edema. LOWER EXTREMITIES: 2+ pulses, warm, well-perfused. No calf tenderness. No peripheral edema. NEUROLOGICAL: Cranial nerves II-XII intact. Normal speech. Gait not observed. PSYCHIATRIC: Cooperative. Good eye contact. Appropriate mood and affect. SKIN: Warm, dry, normal turgor, no rashes or lesions noted, normal capillary refill. LABS HOSPITAL COURSE: Date of Admission:10/04/16 Date of Discharge: 10/07/16 10/04/2016 CT abdomen: Postcholecystectomy surgical metallic clips are present. The stomach is only partially distended limiting evaluation of its wall. Both adrenal glands appear unremarkable. Left kidney is within normal limits in size with a few small nonobstructing lower pole stones measuring up to 6 mm. Impression: Status post cholecystectomy. Small nonobstructing left renal stones. 1.5 right renal pelvis stone with mild right renal hydronephrosis and right hydroureter and without evidence of a ureteral stone. Large mass like density within the urinary bladder measuring 6 cm displacing the Vasquez catheter tube and balloon towards the left. Iatrogenic intraluminal air is present. Further evaluation of the urinary bladder with cystoscopy is recommended. Multilevel degenerative disc disease in the lumbar spine mainly at L1-L2 level ASSESSMENT/PLAN: Patient is a 65 year old male with significant past medical history BPH ( multiple episodes of urinary retention); Kidney stones (3 times: 2 lithotripsy' s done with 1 invasive procedure (name unknown), gall stone pancreatitis for which he was hospitalized from [id number] and had whipples surgery in 2006 likely had pancreatic cancer, TURP done 3 months ago presented to the ED with the chief complaints of "blood in urine". H/o recurrent hematuria since 2 years, with kidney stones (3 times) in the past , came in with hematuria. CT abdomen/pelvis showed Nephrolithiasis with hydroureter. Vasquez catheter was placed with strict I's and O's. Recurrent hematuria likely due to UTI with Nephrolithiasis with mild right renal hydronephrosis and right hydroureter. IV Ceftriaxone 1gm Daily was given for 4days and stopped. Urine culture showed no growth hence didn't send patient on antibiotics. Urology was consulted. Painless hematuria likely due to ?? Bladder mass. H/o weight loss, former smoker , hematuria. CT abdomen showed Large mass like density within the urinary bladder measuring 6 cm displacing the Vasquez catheter tube and balloon towards the left. Needs biopsy as outpatient. Asymptomatic Bradycardia: As per patient, he always remains in 50's but has never been worked up for bradycardia. Needs outpatient workup. Patient has been advised to visit his PCP and urologist as soon as possible. Plan of care explained to the patient. He verbalized understanding. Patient said he will visit his urologist in [place]. Case discussed with Dr. Abreu. Minutes to complete discharge: 45 Discharge Summary Reason For Visit: UTI; HEMATURIA; RETENTION OF URINE Condition: Stable - Instructions Diet, Activity, Other Instructions: You were admitted because of blood in urine. We evaluated and found that you have kidney stones. The vasquez catheter has been removed but please make sure you void. If not, you can catheterize intermittently like you used to do it at home. Please visit your urologist within this week. If you develop any new symptoms or your symptoms persist, please return to the ED immediately. Disposition: HOME - Home Medications Comprehensive Discharge Medication List: Ambulatory Orders Omeprazole 40 mg PO DAILY 10/04/16 Tamsulosin HCl [Flomax -] 0.4 mg PO DAILY cap 10/07/16 This patient is new to me today: No Emergency Visit: Yes ED Registration Date: 10/04/16 Care time: The patient presented to the Emergency Department on the above date and was hospitalized for further evaluation of their emergent condition. Critical Care patient: No - Discharge Referral Referred to [facility] Med [facility] No
== END 2016-10-07 14:26 | disposition home or self-care (01) | DRG 690 ==
LOC: JER 10:04 → JERBED 17:08 → J5S 20:13
PROVIDERS: ADMIT Internal Medicine; ATTEND Internal Medicine
DX: N39.0 Urinary tract infection, site not specified (principal); R31.9 Hematuria, unspecified; R33.9 Retention of urine, unspecified; N40.1 Benign prostatic hyperplasia with lower urinary tract symptoms; N13.2 Hydronephrosis with renal and ureteral calculous obstruction
CPT/HCPCS: 36415; 74176; 80053; 81003; 81015; 85025; 87086; 99284-25